=== PATIENT | female | born 1955 | race Caucasian/White ===

== ENCOUNTER 2017-05-15 21:06 | Observation (INO) | payer OTHER ==
--- NOTE | 2017-05-15 22:19 | EDPHY ---
H & P Stated Complaint: c/o bodyaches x 1 week, elevated temp/fatigue starting tonight , ca pt Time Seen by Provider: 05/15/17 21:41 HPI/ROS: CHIEF COMPLAINT: Fever HISTORY OF PRESENT ILLNESS: This is a 62-year-old female who is undergoing chemotherapy for breast cancer. She is receiving Taxol every other week. Her last dose was just over 1 week ago. She presents tonight with fever. She believes that she had a fever 2 nights ago. Yesterday she was well. Today she developed fever in the afternoon with a maximal measured temperature of 102.6 degrees. She took Advil in the morning and then diclofenac, which she takes for muscle and joint pain related to the Taxol. She spoke with her oncologist who recommended that she come to the emergency department for blood work and evaluation. She is receiving her treatment at [facility] in [facility], where she lives. She denies headache, cough, sore throat, stiff neck, chest pain, abdominal pain , vomiting, diarrhea, and dysuria. She has had fatigue today. She does have persistent joint and muscle pain. REVIEW OF SYSTEMS: A ten point review of systems was performed and is negative with the exception of the items mentioned in the HPI. Past medical history: 1. Breast cancer 2. Lyme disease 14 years ago Past surgical history: 1. Right lumpectomy and lymph node dissection 2. Left ankle surgery 3. Surgery for in vitro fertilization Social history: She lives with her in [place]. She is a software applications architect. She denies tobacco products. General Appearance: Alert. Vital signs reviewed. Temperature 37.8 degrees at triage. Heart rate 96, respiratory rate 16, oxygen saturation 92%, blood pressure 121/58. Eyes: Pupils equal and round, no conjunctival injection, no discharge. Anicteric. ENT, Mouth: Mucous membranes are moist, no oropharyngeal erythema or edema. Neck: No lymphadenopathy, supple. Respiratory: Lungs are clear to auscultation; no wheezes, rales, or rhonchi. Cardiovascular: Regular rate and rhythm; no murmur, rub, or gallop. Gastrointestinal: Abdomen is soft and nontender, no masses or organomegaly, bowel sounds normal. Skin: Warm and dry, no rashes on exposed skin, normal color. Back: Nontender to palpation over the thoracolumbar spine. No CVAT. Extremities: No lower extremity edema, no calf tenderness or swelling. No joint warmth, swelling, or erythema. Neurological: Alert and oriented. Moving all four extremities easily and equally. TED. EOMI. Facial expression symmetric. Tongue midline. Psychiatric: Normal affect. - Medical/Surgical History Hx Asthma: No Hx Chronic Respiratory Disease: No Hx Diabetes: No Hx Cardiac Disease: No Hx Renal Disease: No Hx Cirrhosis: No Hx Alcoholism: No Hx HIV/AIDS: No Hx Splenectomy or Spleen Trauma: No Other PMH: breast ca - currently being tx 3.18, lumpectomy R breast, LLE/L ankle surg, lymes - dx 14 yrs ago, surg for in vitro fert - Social History Smoking Status: Never smoked Constitutional: Initial Vital Signs Temperature (C) 37.8 C 05/15/17 21:10 Heart Rate 96 05/15/17 21:10 Respiratory Rate 16 05/15/17 21:10 Blood Pressure 121/58 H 05/15/17 21:10 O2 Sat (%) 92 05/15/17 21:10 O2 Delivery Mode Room Air Allergies/Adverse Reactions: No Known Allergies Allergy (Unverified 05/15/17 21:16) Home Medications: Medication Instructions Recorded Ativan 05/15/17 Diclofenac Sodium 05/15/17 Taxane 05/15/17 Medical Decision Making ED Course/Re-evaluation: 62-year-old female who is undergoing treatment, Taxol, for breast cancer. She presents with fever that has been present throughout the day today. Aside from fatigue and joint/muscle pain (which she has been experiencing while on the Taxol) she is otherwise feeling fine. Blood work reviewed. Her white blood cell count is 2.99 with 68.3% neutrophils. She has an absolute neutrophil count of 2042, not neutropenia. Platelet count is within normal limits. However, she has a hemoglobin of 6.8 and hematocrit of 21.1. On May 06 her hemoglobin is 8.4 with hematocrit of 26.6. I spoke with the physician money laundering investigator for the Oncology service at [facility]. He agrees that she does not meet criteria for neutropenia and he does not recommend antibiotics. He does recommend blood transfusion for her hemoglobin, as it is below 7. She is being admitted to the hospitalist service for transfusion of 1 unit packed red blood cells. Differential Diagnosis: Considered a differential diagnosis that includes neutropenia fever with infection (urinary tract infection, pneumonia, - Data Points Laboratory Results: Laboratory Results 05/15/17 21:45 05/15/17 21:45 05/15/17 05/15/17 05/15/17 23:46 22:40 21:45 WBC RBC Hgb Hct MCV MCH MCHC RDW Plt Count MPV Neut % (Auto) Lymph % (Auto) [place] % (Auto) Eos % (Auto) Baso % (Auto) Nucleat RBC Rel Count Absolute Neuts (auto) Absolute Lymphs (auto) Absolute Monos (auto) Absolute Eos (auto) Absolute Basos (auto) Absolute Nucleated RBC Immature Gran % Immature Gran # Platelet Estimate Polychromasia Tear Drop Cells Smear Review By Sodium 136 mEq/L mEq/L (135-145) Potassium 3.6 mEq/L mEq/L (3.5-5.2) Chloride 104 mEq/L mEq/L (97-110) Carbon Dioxide 21 mEq/l L mEq/l (22-31) Anion Gap 11 mEq/L mEq/L (8-16) BUN 12 mg/dL mg/dL (7-23) Creatinine 0.6 mg/dL mg/dL (0.6-1.0) Estimated GFR > 60 Glucose 100 mg/dL mg/dL (70-100) Calcium 9.0 mg/dL mg/dL (8.5-10.4) Urine Color PALE YELLOW Urine Appearance CLEAR Urine pH 7.0 (5.0-7.5) Ur Specific [place] 1.005 (1.002-1.030) Urine Protein NEGATIVE (NEGATIVE) Urine Ketones NEGATIVE (NEGATIVE) Urine Blood NEGATIVE (NEGATIVE) Urine Nitrate NEGATIVE (NEGATIVE) Urine Bilirubin NEGATIVE (NEGATIVE) Urine Urobilinogen NEGATIVE EU EU (0.2-1.0) Ur Leukocyte Esterase NEGATIVE (NEGATIVE) Urine Glucose NEGATIVE (NEGATIVE) Patient ABO/Rh Pending Antibody Screen Pending 05/15/17 21:45 WBC 2.99 10^3/uL L 10^3/uL (3.80-9.50) RBC 2.36 10^6/uL L 10^6/uL (4.18-5.33) Hgb 6.8 g/dL L g/dL (12.6-16.3) Hct 21.1 % L % (38.0-47.0) MCV 89.4 fL fL (81.5-99.8) MCH 28.8 pg pg (27.9-34.1) MCHC 32.2 g/dL L g/dL (32.4-36.7) RDW 18.3 % H % (11.5-15.2) Plt Count 214 10^3/uL 10^3/uL (150-400) MPV 9.5 fL fL (8.7-11.7) Neut % (Auto) 68.3 % % (39.3-74.2) Lymph % (Auto) 11.7 % L % (15.0-45.0) [place] % (Auto) 12.0 % % (4.5-13.0) Eos % (Auto) 7.0 % % (0.6-7.6) Baso % (Auto) 0.7 % % (0.3-1.7) Nucleat RBC Rel Count 0.0 % % (0.0-0.2) Absolute Neuts (auto) 2.04 10^3/uL 10^3/uL (1.70-6.50) Absolute Lymphs (auto) 0.35 10^3/uL L 10^3/uL (1.00-3.00) Absolute Monos (auto) 0.36 10^3/uL 10^3/uL (0.30-0.80) Absolute Eos (auto) 0.21 10^3/uL 10^3/uL (0.03-0.40) Absolute Basos (auto) 0.02 10^3/uL 10^3/uL (0.02-0.10) Absolute Nucleated RBC 0.00 10^3/uL 10^3/uL (0-0.01) Immature Gran % 0.3 % % (0.0-1.1) Immature Gran # 0.01 10^3/uL 10^3/uL (0.00-0.10) Platelet Estimate ADEQUATE (ADEQ) Polychromasia 2+ H Tear Drop Cells 1+ H Smear Review By Pending Sodium Potassium Chloride Carbon Dioxide Anion Gap BUN Creatinine Estimated GFR Glucose Calcium Urine Color Urine Appearance Urine pH Ur Specific [place] Urine Protein Urine [place] Urine Blood Urine Nitrate Urine Bilirubin Urine Urobilinogen Ur Leukocyte Esterase Urine Glucose Patient ABO/Rh Antibody Screen Departure - Departure Disposition: [facility] Acute Clinical Impression: Anemia requiring transfusions Condition: Fair
[2017-05-15 22:20] LABS: PLATELET COUNT 214 10^3/uL (150-400)
[2017-05-16] MEDS ORDERED: ONDANSETRON 4 MG/2 ML VIAL IVP PRN (00:03)
[2017-05-16] MEDS ORDERED: ONDANSETRON DISINTEGRATING 4 MG TAB PO PRN (00:03)
[2017-05-16] MEDS: ACETAMINOPHEN 325 MG TAB PO PRN ×3 (00:53→15:54)
--- NOTE | 2017-05-16 01:20 | PDGENHP ---
History and Physical - Chief Complaint Fever - History of Present Illness 62 yo F w/ breast CA presents after a fever at home. Patient noted a T of 102.6 at home today. She noted no symptoms aside from feeling warm and chills. She denies cough, sore throat, congestion, diarrhea, and dysuria. She also denies any new rash or swelling. She is currently undergoing chemotherapy for breast cancer and last had a dose of Taxol 9 days ago. History Information - Allergies/Home Medication List Allergies/Adverse Reactions: No Known Allergies Allergy (Unverified 05/15/17 21:16) Home Medications: Ativan 05/15/17 [Last Taken Unknown] Diclofenac Sodium 05/15/17 [Last Taken Unknown] Taxane 05/15/17 [Last Taken Unknown] I have personally reviewed and updated: family history, medical history - Past Medical History cancer (Breast CA) - Family History Positive for: cancer - Social History Smoking Status: Never smoked Review of Systems Review of Systems: ROS: 10pt was reviewed & negative except for what was stated in HPI & below Physical Exam Physical Exam: Temp Pulse Resp BP Pulse Ox 36.9 C 72 16 101/54 L 96 05/16/17 00:51 05/16/17 00:51 05/16/17 00:51 05/16/17 00:51 05/16/17 00:51 Constitutional: no apparent distress, not in pain Eyes: PERRL, EOMI Ears, Nose, Mouth, Throat: moist mucous membranes, no oral mucosal ulcers Cardiovascular: regular rate and rhythym, no murmur, rub, or gallop Respiratory: no respiratory distress, no rales or rhonchi Gastrointestinal: normoactive bowel sounds, soft, non-tender abdomen Skin: warm, normal color Musculoskeletal: full muscle strength, no muscle tenderness Neurologic: AAOx3, CN II-XII Intact Psychiatric: interacting appropriately, not anxious Lab Data & Imaging Review 05/15/17 21:45 05/15/17 21:45 WBC 2.99 10^3/uL (3.80-9.50) L 05/15/17 21:45 RBC 2.36 10^6/uL (4.18-5.33) L 05/15/17 21:45 Hgb 6.8 g/dL (12.6-16.3) L 05/15/17 21:45 Hct 21.1 % (38.0-47.0) L 05/15/17 21:45 MCV 89.4 fL (81.5-99.8) 05/15/17 21:45 MCH 28.8 pg (27.9-34.1) 05/15/17 21:45 MCHC 32.2 g/dL (32.4-36.7) L 05/15/17 21:45 RDW 18.3 % (11.5-15.2) H 05/15/17 21:45 Plt Count 214 10^3/uL (150-400) 05/15/17 21:45 MPV 9.5 fL (8.7-11.7) 05/15/17 21:45 Neut % (Auto) 68.3 % (39.3-74.2) 05/15/17 21:45 Lymph % (Auto) 11.7 % (15.0-45.0) L 05/15/17 21:45 [place] % (Auto) 12.0 % (4.5-13.0) 05/15/17 21:45 Eos % (Auto) 7.0 % (0.6-7.6) 05/15/17 21:45 Baso % (Auto) 0.7 % (0.3-1.7) 05/15/17 21:45 Nucleat RBC Rel Count 0.0 % (0.0-0.2) 05/15/17 21:45 Absolute Neuts (auto) 2.04 10^3/uL (1.70-6.50) 05/15/17 21:45 Absolute Lymphs (auto) 0.35 10^3/uL (1.00-3.00) L 05/15/17 21:45 Absolute Monos (auto) 0.36 10^3/uL (0.30-0.80) 05/15/17 21:45 Absolute Eos (auto) 0.21 10^3/uL (0.03-0.40) 05/15/17 21:45 Absolute Basos (auto) 0.02 10^3/uL (0.02-0.10) 05/15/17 21:45 Absolute Nucleated RBC 0.00 10^3/uL (0-0.01) 05/15/17 21:45 Immature Gran % 0.3 % (0.0-1.1) 05/15/17 21:45 Immature Gran # 0.01 10^3/uL (0.00-0.10) 05/15/17 21:45 Platelet Estimate ADEQUATE (ADEQ) 05/15/17 21:45 Polychromasia 2+ H 05/15/17 21:45 Tear Drop Cells 1+ H 05/15/17 21:45 Sodium 136 mEq/L (135-145) 05/15/17 21:45 Potassium 3.6 mEq/L (3.5-5.2) 05/15/17 21:45 Chloride 104 mEq/L (97-110) 05/15/17 21:45 Carbon Dioxide 21 mEq/l (22-31) L 05/15/17 21:45 Anion Gap 11 mEq/L (8-16) 05/15/17 21:45 BUN 12 mg/dL (7-23) 05/15/17 21:45 Creatinine 0.6 mg/dL (0.6-1.0) 05/15/17 21:45 Estimated GFR > 60 05/15/17 21:45 Glucose 100 mg/dL (70-100) 05/15/17 21:45 Calcium 9.0 mg/dL (8.5-10.4) 05/15/17 21:45 Urine Color PALE YELLOW 05/15/17 22:40 Urine Appearance CLEAR 05/15/17 22:40 Urine pH 7.0 (5.0-7.5) 05/15/17 22:40 Ur Specific [place] 1.005 (1.002-1.030) 05/15/17 22:40 Urine Protein NEGATIVE (NEGATIVE) 05/15/17 22:40 Urine Ketones NEGATIVE (NEGATIVE) 05/15/17 22:40 Urine Blood NEGATIVE (NEGATIVE) 05/15/17 22:40 Urine Nitrate NEGATIVE (NEGATIVE) 05/15/17 22:40 Urine Bilirubin NEGATIVE (NEGATIVE) 05/15/17 22:40 Urine Urobilinogen NEGATIVE EU (0.2-1.0) 05/15/17 22:40 Ur Leukocyte Esterase NEGATIVE (NEGATIVE) 05/15/17 22:40 Urine Glucose NEGATIVE (NEGATIVE) 05/15/17 22:40 Patient ABO/Rh O NEGATIVE 05/15/17 23:46 Antibody Screen NEGATIVE 05/15/17 23:46 Crossmatch IS Only See Detail 05/15/17 23:46 Assessment & Plan Assessment: 62 yo F w/ breast CA currently undergoing chemotherapy presents with fever and anemia. Plan: 1. Fever - Has been afebrile here with Tmax of 37.8. She denies any localizing symptoms. - Admit for observation - Basic infectious work-up: UA, CXR, blood cultures 2. Anemia - Most likely 2/2 chemotherapy. ED spoke with oncologist in [place] and they requested patient be transfused with 1u pRBC. - Transfuse 1u pRBC - Monitor CBC 3. Leukopenia - 2/2 chemotherapy Code - Full Diet - Regular Ppx - SCDs Dispo - Admit under observation status
[2017-05-16 04:55] LABS: PLATELET COUNT 177 10^3/uL (150-400)
[2017-05-16 08:47] VITALS: RESP 18
[2017-05-16] MEDS ORDERED: LORazepam 0.5 MG TAB PO PRN (11:47)
[2017-05-16] MEDS ORDERED: NON-FORMULARY NEW DRUG (Omeprazole [Omeprazole] 20 MG) PO SCH (12:00)
[2017-05-16] MEDS ORDERED: PANTOPRAZOLE SODIUM 40 MG TAB PO SCH (12:15)
--- NOTE | 2017-05-16 12:41 | ASMTCMCOM ---
CM Note CM Note Notes: Chart reviewed for discharge needs. 62 year old female from [place] adnitted through our ED with anemia, Diagnosis of breast CA and currently under treatment. Anticipate she will dc without needs when medically stable, CM available should needs arise. Plan dc to home. Date Signed: 05/16/2017 12:40 PM Electronically Signed By:Jing Cuellar RN
[2017-05-16 15:54] VITALS: BP 112/68; PULSE 86; TEMP 101.1; O2SAT 95
--- NOTE | 2017-05-16 17:51 | GDS ---
[f rep st] DISCHARGE SUMMARY DIAGNOSES: 1. Stage II breast cancer, currently getting chemotherapy and followed at [facility]. 2. Fever. No obvious source. 3. Abnormal chest x-ray. HOSPITAL COURSE: The patient is a 62-year-old with stage II breast cancer. She is currently getting chemotherapy at [facility] and had her Taxol dose approximately 10 days prior to admission. Th e day of admission, she had a fever of 102, came into the emergency department and her evaluation was fairly unremarkable. She was not neutropenic. She did have an anemia which required transfusion of 1 unit of packed red blood cells and she had an appropriate response to that. There were no obvious signs of acute bleeding during her stay here. She was observed overnight. She initially defervesce d and then she started having some low-grade fevers, but never had a fever as high as 101.[address]. She had no symptoms. Urinalysis was negative. Her chest x-ray was done which showed some pneum onitis right greater than left. However, her oxygen saturations were 98% on room air, and her vital signs have remained stable. I did call [facility] and spoke to the doctor professional system administrator, Dr. Fernando griggs. He felt that since she was not neutropenic and there was no obvious source and her viral panel was negative, that he did not recommend antibiotics at this time, but would make sure she follows up with her regular oncologist when she returns to [place]. She plans on flying back to [place] damián . The patient will be discharged home. She is to track her vital signs. If she starts having h igher fevers or develops any symptoms, she is to come back to the emergency department. Otherwise, s he will follow up with her primary oncologist later this week. CONDITION ON DISCHARGE: Good. PHYSICAL EXAMINATION: VITAL SIGNS: She has a low-grade fever of 38, heart rate of 86, blood pressur e 112/68. She is 95% to 97% on room air. GENERAL: She is alert and oriented. HEART: Regular. [place] NGS: Clear. ABDOMEN: Soft. SKIN: She has no rash. LABORATORY DATA: White count at the time of discharge is 2.36 with 60% segs, for a total neutrophil count of 1.3. DISCHARGE MEDICATIONS: She will resume her home medications. FOLLOWUP INSTRUCTIONS: She is to go home to [place] tomorrow and will follow up with her oncologist when she gets back to [place]. /[id number]/MODL
[2017-05-16] MEDS ORDERED: DICLOFENAC SODIUM 75 MG TAB PO SCH (21:00)
[2017-05-17] MEDS ORDERED: CHOLECALCIFEROL VIT D3 1,000 UNITS TAB PO SCH (09:00)
== END 2017-05-16 17:55 | disposition home or self-care (01) ==
LOC: F1N 05-16 00:41
PROVIDERS: ADMIT Student in an Organized Health Care Education/Training Program; ATTEND Student in an Organized Health Care Education/Training Program
PROC: 30233N1 Transfusion of Nonautologous Red Blood Cells into Peripheral Vein, Percutaneous Approach (ICD-10-PCS; principal; 2017-05-16)
DX: D64.9 Anemia, unspecified (principal); C50.919 Malignant neoplasm of unspecified site of unspecified female breast; Z80.3 Family history of malignant neoplasm of breast
CPT/HCPCS: 36430; 71045; G0378; P9016